=== PATIENT | female | born 1985 | race Caucasian/White ===

== ENCOUNTER 2017-01-14 16:13 | Outpatient (CLI) | payer BC ==
[2017-01-14] MEDS: Terbutaline 1 MG/ML SDV SUBCUT SCH ×2 (16:41→17:30)
== END 2017-01-14 18:51 | disposition home or self-care (01) ==
LOC: MW.OBCHECK 16:13 → MW.OB 16:15 → MW.OBCHECK 18:51
PROVIDERS: ATTEND Obstetrics & Gynecology
DX: O47.03 False labor before 37 completed weeks of gestation, third trimester (principal)
CPT/HCPCS: 59025; J3105; 96372

== ENCOUNTER 2017-02-19 04:54 | Inpatient (IN) | payer BC ==
[2017-02-19] MEDS ORDERED: Water For Irrigation,Sterile 1,000 ML Container IRR PRN (05:12)
[2017-02-19] MEDS ORDERED: Carboprost Tromethamine 250 MCG/1 ML Amp IM PRN (05:12)
[2017-02-19] MEDS ORDERED: Sodium Chloride 0.9% 10 ML Syringe FLUSH PRN (05:12)
[2017-02-19] MEDS ORDERED: Sodium Chloride 0.9% 2.5 ML Syringe FLUSH PRN (05:12)
[2017-02-19] MEDS ORDERED: Misoprostol 200 MCG Tab PO PRN (05:12)
[2017-02-19] MEDS ORDERED: Butorphanol 1 MG/ML SDV IVPUSH PRN (05:12)
[2017-02-19] MEDS ORDERED: Methylergonovine 0.2 MG/1 ML Amp IM PRN (05:12)
[2017-02-19] MEDS ORDERED: Lidocaine 1% 50 ML MDV INJECT PRN (05:12)
[2017-02-19] MEDS ORDERED: Terbutaline 1 MG/ML SDV SUBCUT PRN (05:14)
[2017-02-19] MEDS ORDERED: Oxytocin/Lactated Ringers 30 UNIT/500 ML BAG IV SCH (05:15)
[2017-02-19] MEDS ORDERED: Lactated Ringers 1,000 ML IV SCH (05:15)
[2017-02-19] MEDS ORDERED: oxyCODONE 5 MG Tab PO PRN (19:39)
[2017-02-19] MEDS ORDERED: Docusate Sodium 100 MG Cap PO PRN (19:39)
[2017-02-19] MEDS ORDERED: Benzocaine/Menthol 20%-0.5% Spray 78 GM Cannister TOP PRN (19:39)
[2017-02-19] MEDS ORDERED: Bisacodyl 10 MG Supp RECTAL PRN (19:39)
[2017-02-19] MEDS ORDERED: Lanolin 100% Cream 7 GM Tube TOP PRN (19:39)
[2017-02-19] MEDS ORDERED: Witch Hazel Medicated Pads 40/Jar TOP PRN (19:39)
[2017-02-19] MEDS: Acetaminophen 500 MG Tab PO PRN (21:45)
[2017-02-19] MEDS: Ibuprofen 800 MG Tab PO PRN (21:46)
--- NOTE | 2017-02-20 01:21 | OR ---
SURGEON: Felisha Camacho DATE OF PROCEDURE: 02/19/2017 DELIVERY SUMMARY BRIEF PREOPERATIVE HISTORY: This is a 31-year-old, G3, P2, who presented to Labor and Delivery for induction of labor for asymmetric IUGR less than the 5th percentile with head sparing. On admission, heart tracing was significant for a category 1 status and patient was having an occasional contraction. Secondary to intrauterine growth restriction, initially her cervix was ripened with Cook catheter balloon. On admission, the patient's cervix was 1 cm dilated, approximately 60% effaced, and -2 station. After the catheter was dislodged, the patient was approximately 5 cm dilated. With Cook catheter in, IV Pitocin was started. Once the catheter was out, the patient was at 18 milliunits per minute of Pitocin and amniotomy was performed for clear fluid. The patient eventually progressed to complete dilation and +1 station. The patient started maternal expulsive efforts. PREOPERATIVE DIAGNOSES: 1. Intrauterine at 39 weeks and 1 day. 2. GBS negative. 3. Induction of labor for asymmetric IUGR. POSTOPERATIVE DIAGNOSES: 1. Intrauterine at 39 weeks and 1 day. 2. Delivered status. 3. Bilateral labial abrasions. PROCEDURE PERFORMED: Spontaneous-assisted vaginal delivery. ANESTHESIA: None. ESTIMATED BLOOD LOSS: 100 mL. FINDINGS: Viable female in vertex presentation with score of 9 and 9 at 1 and 5 minutes respectively and weight of 2150g. Bilateral labia minora abrasions on the internal surface. Intact perineum. Normal intact placenta with 3-vessel cord. Of note, the placenta was small, but appropriate for 2150 g . SPECIMEN REMOVED: Placenta. CONDITION: Postoperatively, the patient and tolerated the procedure well. COMPLICATIONS: None known. DESCRIPTION OF PROCEDURE: This female, under no anesthesia, delivered a viable female infant, with score of 9 and 9 at 1 and 5 minutes respectively and weight of 2150 g. Delivery was via spontaneous assisted vaginal delivery with in vertex presentation. Upon delivery of infant vertex, the neck was checked and there was a no nuchal to be reduced and the anterior shoulder spontaneously delivered with fetus. The was bulb suctioned at delivery and placed directly on mom's abdomen since the baby was small. was very vigorous. After delivery of the , IV Pitocin was given as an uterotonic to prevent excessive maternal blood loss and to help expel the placenta. With signs of placental separation, a fundal massage was completed along with traction on the umbilical cord and a normal intact placenta with a three-vessel cord was delivered. After delivery of and placenta, the vagina, perineum, and rectum were explored and the patient had on inside of her labia minora just abrasions that were hemostatic and not in need of repair. The lower uterine segment and vagina was cleared of all clots and debris. The patient was cleansed. Pads were changed. The bed was returned to functioning status. The patient and tolerated the procedure well. Sponge, lap, needle, and instrument counts were correct. DONNA / KINZA /[id number] ANTONIO
[2017-02-20] MEDS: Ibuprofen 800 MG Tab PO PRN (08:53)
--- NOTE | 2017-02-20 12:07 | PCM.PNPP ---
- General Info Date of Service: 02/20/17 Functional Status: Reports: pain controlled, tolerating diet, ambulating, urinating - Review of Systems General: Reports: No Symptoms HEENT: Reports: no symptoms Pulmonary: Reports: no symptoms Cardiovascular: Reports: No Symptoms Gastrointestinal: Reports: No symptoms Genitourinary: Reports: no symptoms Musculoskeletal: Reports: no symptoms Skin: Reports: no symptoms Neurological: Reports: No Symptoms Psychiatric: Reports: no symptoms - General Info Date of Service: 02/20/17 - Patient Data Vital Signs - most recent: Last Vital Signs Temp 36.5 C 02/20/17 04:03 Pulse 51 L 02/20/17 04:03 Resp 15 02/20/17 04:03 BP 122/78 02/20/17 04:03 Pulse Ox 97 02/20/17 04:03 Weight - most recent: 70.307 kg Lab Results - last 24 hrs: Laboratory Results - last 24 hr 02/20/17 Range/Units 06:51 Hgb 13.0 (12.0-16.0) g/dL Hct 36.8 (36.0-46.0) % Med Orders - Current: Current Medications Acetaminophen (Tylenol Extra Strength) 500 mg PO Q4H PRN PRN Reason: Pain Last Admin: 02/19/17 21:45 Dose: 500 mg Benzocaine/Menthol (Dermoplast Pain Relief 20%-0.5% [place]) 78 gm TOP ASDIRECTED PRN PRN Reason: Perineal Comfort Measure Bisacodyl (Dulcolax) 10 mg RECTAL .ONCE PRN PRN Reason: Constipation Butorphanol Tartrate (Stadol) 1 mg IVPUSH Q1H PRN PRN Reason: Pain Last Admin: 02/19/17 17:42 Dose: 1 mg Carboprost Tromethamine (Hemabate Ds) 250 mcg IM ASDIRECTED PRN PRN Reason: Post Hemorrhage Docusate Sodium (Colace) 100 mg PO BID PRN PRN Reason: Constipation Emollient Ointment (Lansinoh Hpa) 0 gm TOP ASDIRECTED PRN PRN Reason: Sore Nipples Last Admin: 02/19/17 21:44 Dose: 1 applic Lactated Ringer's (Ringers, Lactated) 1,000 mls @ 150 mls/hr IV ASDIRECTED BANDAR Last Admin: 02/19/17 12:57 Dose: 150 mls/hr Oxytocin/Lactated Ringer's (Pitocin In Lr 30 Units/500 Ml) 30 unit in 500 mls @ 2 mls/hr IV TITRATE BANDAR; 2 MUNITS/MIN PRN Reason: Protocol Last Titration: 02/19/17 18:51 Dose: 999 munits/min, 999 mls/hr Ibuprofen (Motrin) 800 mg PO Q6H PRN PRN Reason: Pain Last Admin: 02/20/17 08:53 Dose: 800 mg Lidocaine HCl (Xylocaine 1%) 50 ml INJECT .ONCE PRN PRN Reason: Laceration repair Methylergonovine Maleate (Methergine) 0.2 mg IM ASDIRECTED PRN PRN Reason: Post Hemorrhage Misoprostol (Cytotec) 200 mcg PO .ONCE PRN PRN Reason: Post Hemorrhage Sodium Chloride (Saline Flush) 10 ml FLUSH ASDIRECTED PRN PRN Reason: Keep Vein Open Sodium Chloride (Saline Flush) 2.5 ml FLUSH ASDIRECTED PRN PRN Reason: Keep Vein Open Sterile Water (Sterile Water For Irrigation) 1,000 ml IRR ASDIRECTED PRN PRN Reason: delivery Last Admin: 02/19/17 21:43 Dose: 1,000 ml Terbutaline Sulfate (Brethine) 0.25 mg SUBCUT ASDIRECTED PRN PRN Reason: Tacysystole Witch Na (Tucks) 1 pad TOP ASDIRECTED PRN PRN Reason: comfort care Discontinued Medications Oxycodone HCl (Oxycodone) 5 mg PO Q2H PRN PRN Reason: Pain - Interaction Infant Disposition, : in Room with Family Interaction: Holding Infant Feeding: Attempted ; Nursed Fair/Poor Support Person: - Recovery Exam Fundal Tone: Firm Fundal Placement: Midline Lochia Amount: Small Lochia Color: Rubra/Red - Exam General: alert, oriented Neck: supple Lungs: Clear to auscultation, Normal respiratory effort Cardiovascular: Regular Rate, Regular Rhythm Abdomen: bowel sounds present, soft, no tenderness Extremities: no calf tenderness Skin: warm, dry, intact Neurological: no new focal deficit Psy/Mental Status: alert, normal affect, normal mood - Problem List & Annotations (1) Vaginal delivery SNOMED Code(s): 858934812 Code(s): O80 - ENCOUNTER FOR FULL-TERM UNCOMPLICATED DELIVERY Status: Acute Current Visit: Yes - Problem List Review Problem List Initiated/Reviewed/Updated: Yes - My Orders Last 24 Hours: My Active Orders 02/19/17 19:39 Patient Status [ADT] Routine May Shower [RC] ASDIRECTED Up ad [place]zana [RC] ASDIRECTED Vital Signs [RC] PER UNIT ROUTINE Acetaminophen [Tylenol Extra Strength] 500 mg PO Q4H PRN Benzocaine/Menthol [Dermoplast Pain Relief 20%-0.5% [place]] 78 gm TOP ASDIRECTED PRN Bisacodyl [Dulcolax] 10 mg RECTAL .ONCE PRN Docusate Sodium [Colace] 100 mg PO BID PRN Ibuprofen [Motrin] 800 mg PO Q6H PRN Lanolin [Lansinoh HPA] See Dose Instructions TOP ASDIRECTED PRN Witch Na [Tucks] 1 pad TOP ASDIRECTED PRN Assess Lochia [WOMSER] Per Unit Routine Assess Uterine Involution [WOMSER] Per Unit Routine Peripheral IV Discontinue [OM.PC] Routine 02/19/17 19:40 Ice Therapy [OM.PC] Per Unit Routine Perineal Care [OM.PC] Per Unit Routine Sitz Bath [OM.PC] Per Unit Routine 02/19/17 Dinner Regular Diet [DIET] - Assessment Assessment:: PPD#1 S/p SAVD, IOL for IUGR Doing well Breast feeding well Anticipate discharge home tomorrow
[2017-02-20] MEDS: Acetaminophen 500 MG Tab PO PRN (15:24)
[2017-02-21] MEDS: Ibuprofen 800 MG Tab PO PRN (00:08)
[2017-02-21 09:09] VITALS: BP 119/83
--- NOTE | 2017-02-21 12:29 | PCM.PNPP ---
- General Info Date of Service: 02/21/17 Functional Status: Reports: pain controlled, tolerating diet, ambulating, urinating - Review of Systems General: Reports: No Symptoms HEENT: Reports: no symptoms Pulmonary: Reports: no symptoms Cardiovascular: Reports: No Symptoms Gastrointestinal: Reports: No symptoms Genitourinary: Reports: no symptoms Musculoskeletal: Reports: no symptoms Skin: Reports: no symptoms Neurological: Reports: No Symptoms Psychiatric: Reports: no symptoms - General Info Date of Service: 02/21/17 - Patient Data Vital Signs - most recent: Last Vital Signs Temp 36.3 C 02/21/17 08:15 Pulse 67 02/21/17 08:15 Resp 16 02/21/17 08:15 BP 119/83 02/21/17 08:15 Pulse Ox 97 02/21/17 08:15 Weight - most recent: 70.307 kg Med Orders - Current: Current Medications Acetaminophen (Tylenol Extra Strength) 500 mg PO Q4H PRN PRN Reason: Pain Last Admin: 02/20/17 15:24 Dose: 500 mg Benzocaine/Menthol (Dermoplast Pain Relief 20%-0.5% [place]) 78 gm TOP ASDIRECTED PRN PRN Reason: Perineal Comfort Measure Bisacodyl (Dulcolax) 10 mg RECTAL .ONCE PRN PRN Reason: Constipation Butorphanol Tartrate (Stadol) 1 mg IVPUSH Q1H PRN PRN Reason: Pain Last Admin: 02/19/17 17:42 Dose: 1 mg Carboprost Tromethamine (Hemabate Ds) 250 mcg IM ASDIRECTED PRN PRN Reason: Post Hemorrhage Docusate Sodium (Colace) 100 mg PO BID PRN PRN Reason: Constipation Emollient Ointment (Lansinoh Hpa) 0 gm TOP ASDIRECTED PRN PRN Reason: Sore Nipples Last Admin: 02/19/17 21:44 Dose: 1 applic Lactated Ringer's (Ringers, Lactated) 1,000 mls @ 150 mls/hr IV ASDIRECTED BANDAR Last Admin: 02/19/17 12:57 Dose: 150 mls/hr Oxytocin/Lactated Ringer's (Pitocin In Lr 30 Units/500 Ml) 30 unit in 500 mls @ 2 mls/hr IV TITRATE BANDAR; 2 MUNITS/MIN PRN Reason: Protocol Last Titration: 02/19/17 18:51 Dose: 999 munits/min, 999 mls/hr Ibuprofen (Motrin) 800 mg PO Q6H PRN PRN Reason: Pain Last Admin: 02/21/17 00:08 Dose: 800 mg Lidocaine HCl (Xylocaine 1%) 50 ml INJECT .ONCE PRN PRN Reason: Laceration repair Methylergonovine Maleate (Methergine) 0.2 mg IM ASDIRECTED PRN PRN Reason: Post Hemorrhage Misoprostol (Cytotec) 200 mcg PO .ONCE PRN PRN Reason: Post Hemorrhage Sodium Chloride (Saline Flush) 10 ml FLUSH ASDIRECTED PRN PRN Reason: Keep Vein Open Sodium Chloride (Saline Flush) 2.5 ml FLUSH ASDIRECTED PRN PRN Reason: Keep Vein Open Sterile Water (Sterile Water For Irrigation) 1,000 ml IRR ASDIRECTED PRN PRN Reason: delivery Last Admin: 02/19/17 21:43 Dose: 1,000 ml Terbutaline Sulfate (Brethine) 0.25 mg SUBCUT ASDIRECTED PRN PRN Reason: Tacysystole Witch Na (Tucks) 1 pad TOP ASDIRECTED PRN PRN Reason: comfort care Discontinued Medications Oxycodone HCl (Oxycodone) 5 mg PO Q2H PRN PRN Reason: Pain - Infant Interaction Infant Disposition, : [place] in Room with Family Infant Interaction: Holding Feeding: Breastfed Infant; Nursed Well Support Person: - Recovery Exam Fundal Tone: Firm Fundal Level: 2 Fingerbreadths Below Umbilicus Fundal Placement: Midline Lochia Amount: Scant Lochia Color: Rubra/Red Perineum Description: Intact, Minimal Bruising/Swelling Episiotomy/Laceration: None Bladder Status: Voiding Urinary Elimination: Voided - Exam General: alert, oriented Neck: supple Lungs: Clear to auscultation, Normal respiratory effort Cardiovascular: Regular Rate, Regular Rhythm Abdomen: bowel sounds present, soft, no tenderness Extremities: no calf tenderness Skin: warm, dry, intact Neurological: no new focal deficit Psy/Mental Status: alert, normal affect, normal mood - Problem List & Annotations (1) Vaginal delivery SNOMED Code(s): 780936903 Code(s): O80 - ENCOUNTER FOR FULL-TERM UNCOMPLICATED DELIVERY Status: Acute Current Visit: Yes - Problem List Review Problem List Initiated/Reviewed/Updated: Yes - My Orders Last 24 Hours: My Active Orders 02/21/17 12:26 Ready for Discharge [RC] PER UNIT ROUTINE - Assessment Assessment:: PPD#2 S/p SAVD, IOL for IUGR Doing well Breast feeding well Discharge home today - Plan Plan:: Discharge home today with follow up in 6wks Pelvic rest for 6wks Bleeding precautions Infection precautions given Thrombotic precautions blues/depression precautions
== END 2017-02-21 13:20 | disposition home or self-care (01) | DRG 560 ==
LOC: MW.OBCHECK 04:54 → MW.OB 04:56 → MW.OBCHECK 05:12 → OBSVTOIN 18:50 → MW.OB 22:40
PROVIDERS: ADMIT Obstetrics & Gynecology; ATTEND Obstetrics & Gynecology
PROC: 10E0XZZ Delivery of Products of Conception, External Approach (ICD-10-PCS; principal; 2017-02-19)
PROC: 3E033VJ Introduction of Other Hormone into Peripheral Vein, Percutaneous Approach (ICD-10-PCS; 2017-02-19)
PROC: 0U7C7ZZ Dilation of Cervix, Via Natural or Artificial Opening (ICD-10-PCS; 2017-02-19)
DX: O36.5930 Maternal care for other known or suspected poor fetal growth, third trimester, not applicable or unspecified (principal); O71.82 Other specified trauma to perineum and vulva; Z3A.39 39 weeks gestation of pregnancy; Z37.0 Single live birth
CPT/HCPCS: 36415; 59025; 59200; 85014; 85018; 85027; 86850; 86900; 86901; 88307; A9270-GY; J0595; J7120

== ENCOUNTER 2020-11-05 13:47 | Observation (INO) | payer BC ==
[2020-11-05] MEDS ORDERED: Lactated Ringers 1,000 ML IV SCH (14:00)
[2020-11-05] MEDS ORDERED: Acetaminophen 500 MG Tab PO PRN (14:10)
[2020-11-05] MEDS ORDERED: cefTRIAXone 1 GM in Premix Bag 1 BAG IV SCH (14:15)
[2020-11-05] MEDS ORDERED: Sodium Chloride 0.9% 50 ML IV SCH (14:30)
== END 2020-11-05 20:05 | disposition home or self-care (01) ==
LOC: MW.OB 13:47
PROVIDERS: ADMIT Obstetrics & Gynecology; ATTEND Obstetrics & Gynecology
DX: O23.03 Infections of kidney in pregnancy, third trimester (principal); Z3A.31 31 weeks gestation of pregnancy; Z79.899 Other long term (current) drug therapy; Z88.0 Allergy status to penicillin; Z88.5 Allergy status to narcotic agent; Z20.822 Contact with and (suspected) exposure to COVID-19
CPT/HCPCS: 36415; 59025; 85007; 85027; 87635; 96365; A9270; G0378; J0696; J7120; U0002

== ENCOUNTER 2020-12-27 01:43 | Inpatient (IN) | payer BC ==
[2020-12-27] MEDS: Lactated Ringers 1,000 ML IV SCH ×3 (06:10→09:25)
[2020-12-27] MEDS ORDERED: Misoprostol 200 MCG Tab PO PRN (06:15)
[2020-12-27] MEDS ORDERED: Tranexamic Acid 1,000 MG in Sodium Chloride 0.9% 100 ML IV PRN (06:15)
[2020-12-27] MEDS ORDERED: Butorphanol 1 MG/ML SDV IVPUSH PRN (06:15)
[2020-12-27] MEDS ORDERED: Sodium Chloride 0.9% 2.5 ML Syringe FLUSH PRN (06:15)
[2020-12-27] MEDS ORDERED: Water For Irrigation,Sterile 1,000 ML Container IRR PRN (06:15)
[2020-12-27] MEDS ORDERED: Sodium Chloride 0.9% 10 ML Syringe FLUSH PRN (06:15)
[2020-12-27] MEDS ORDERED: Carboprost Tromethamine 250 MCG/1 ML Amp IM PRN (06:15)
[2020-12-27] MEDS ORDERED: Lidocaine 1% 50 ML MDV INJECT PRN (06:15)
[2020-12-27] MEDS ORDERED: Oxytocin/0.9 % Sodium Chloride 30 UNIT/500 ML BAG IV SCH (06:15)
[2020-12-27] MEDS ORDERED: Nalbuphine 10 MG/1 ML Vial IVPUSH PRN (06:15)
[2020-12-27] MEDS ORDERED: Methylergonovine 0.2 MG/1 ML Amp IM PRN (06:15)
[2020-12-27] MEDS ORDERED: Sodium Chloride 0.9% 10 ML SDV IV PRN (06:15)
[2020-12-27] MEDS ORDERED: fentaNYL 100 MCG/2 ML SDV ONE (06:58)
[2020-12-27] MEDS ORDERED: Ropivacaine HCl/PF 100 ML ONE (06:58)
--- NOTE | 2020-12-27 07:19 | PCM.PREANE ---
Preanesthetic Assessment - Anesthesia/Transfusion/Family Hx Anesthesia History: Prior Anesthesia Without Reaction Family History of Anesthesia Reaction: No Transfusion History: No Prior Transfusion(s) - Physical Assessment NPO Status Date: 12/27/20 NPO Status Time: 00:05 Height: 1.6 m Weight: 73.663 kg ASA Class: 2 - Lab Values: Laboratory Last Values WBC 8.13 K/uL (4.0-11.0) 12/27/20 06:10 RBC 4.65 M/uL (4.30-5.90) 12/27/20 06:10 Hgb 13.5 g/dL (12.0-16.0) 12/27/20 06:10 Hct 39.8 % (36.0-46.0) 12/27/20 06:10 MCV 85.6 fL (80.0-98.0) 12/27/20 06:10 MCH 29.0 pg (27.0-32.0) 12/27/20 06:10 MCHC 33.9 g/dL (31.0-37.0) 12/27/20 06:10 RDW Std Deviation 42.1 fl (28.0-62.0) 12/27/20 06:10 RDW Coeff of Bong 14 % (11.0-15.0) 12/27/20 06:10 Plt Count 162 K/uL (150-400) 12/27/20 06:10 MPV 10.10 fL (7.40-12.00) 12/27/20 06:10 Nucleated RBC % 0.0 /100WBC 12/27/20 06:10 Nucleated RBCs # 0 K/uL 12/27/20 06:10 SARS-CoV-2 RNA (TANISHA) NEGATIVE (NEGATIVE) 12/27/20 06:00 - Allergies Allergies/Adverse Reactions: Allergies Allergy/AdvReac Type Severity Reaction Status Date / Time hydrocodone Allergy Nausea Verified 02/19/17 05:03 Penicillins Allergy Other Verified 02/19/17 05:03 - Acknowledgements Anesthesia Type Planned: Epidural Pt an Appropriate Candidate for the Planned Anesthesia: Yes Alternatives and Risks of Anesthesia Discussed w Pt/Guardian: Yes Pt/Guardian Understands and Agrees with Anesthesia Plan: Yes PreAnesthesia Questionnaire - Past Health History Medical/Surgical History: Denies 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: - Infectious Disease History Infectious Disease History: Reports: Chicken Pox - Past Surgical History HEENT Surgical History: Reports: Other (See Below) Other HEENT Surgeries/Procedures: wisdom teeth extraction Female Surgical History: Reports: Other (See Below) Other Female Surgeries/Procedures: breast augmentation - SUBSTANCE USE Tobacco Use Status *Q: Never Tobacco User Tobacco Use Within Last Twelve Months: No Second Hand Smoke Exposure: No Recreational Drug Use History: No - HOME MEDS Home Medications: Home Meds Vit37/Iron/Folic Acid [[place]] 1 tab PO DAILY 12/27/20 [History] - CURRENT (IN HOUSE) MEDS Current Meds: Current Medications Butorphanol Tartrate (Stadol) 1 mg IVPUSH Q1H PRN PRN Reason: Pain Carboprost Tromethamine (Hemabate Ds) 250 mcg IM ASDIRECTED PRN PRN Reason: Post Hemorrhage Lactated Ringer's (Ringers, Lactated) 1,000 mls @ 150 mls/hr IV ASDIRECTED BANDAR Last Admin: 12/27/20 06:10 Dose: 999 mls/hr Documented by: Oxytocin/Sodium Chloride (Oxytocin 30 Unit/500 Ml-Ns) 30 unit in 500 mls @ 500 mls/hr IV TITRATE [facility] Tranexamic Acid 1,000 mg/ (Sodium Chloride) 110 mls @ 660 mls/hr IV ONETIME PRN PRN Reason: Bleeding Lidocaine HCl (Xylocaine 1%) 50 ml INJECT ONETIME PRN PRN Reason: Laceration repair Methylergonovine Maleate (Methergine) 0.2 mg IM ASDIRECTED PRN PRN Reason: Post Hemorrhage Misoprostol (Cytotec) 200 mcg PO ONETIME PRN PRN Reason: Post Hemorrhage Nalbuphine HCl (Nubain) 10 mg IVPUSH Q1H PRN PRN Reason: Pain (severe 7-10) Sodium Chloride (Saline Flush) 10 ml FLUSH ASDIRECTED PRN PRN Reason: Keep Vein Open Sodium Chloride (Saline Flush) 2.5 ml FLUSH ASDIRECTED PRN PRN Reason: Keep Vein Open Sodium Chloride (Normal Saline) 10 ml IV ASDIRECTED PRN PRN Reason: IV Use Sterile Water (Sterile Water For Irrigation) 1,000 ml IRR ASDIRECTED PRN PRN Reason: delivery Discontinued Medications Fentanyl (Sublimaze) Confirm Administered Dose 100 mcg .ROUTE .STK-MED ONE Stop: 12/27/20 06:59 Ropivacaine (Naropin 0.2%) Confirm Administered Dose 100 mls @ as directed .ROUTE .STK-MED ONE Stop: 12/27/20 06:59
--- NOTE | 2020-12-27 07:22 | PCM.PRNOTE ---
- Free Text/Narrative Note: Anes Note Patient requests epidural. Sitting position, Level L3-L4 midline approach. Sterile technique. Chloraprep scrub to lumbar area. Sterile fenestrated drape applied. Epidural space easily achieved single attempt with ease using DHARMESH technique. DHARMESH at 3 cm. Cath threaded 5 cm with ease. Sterile clear adhesive dressing applied. Test 0703 3 cc 1.5% lido with epi negative. 0705 Load 10 cc 0.2% ropivicaine with 1 mcg cc fentayl in slow divided doses. 0710 Pumps started with 90 cc same solution. Rate is 8 cc hr with 6 cc q 20 min prn bolus. Abdoul well. 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
--- NOTE | 2020-12-27 10:35 | PCM.DEL ---
<Kellie Vazquez - Last Filed: 12/27/20 10:30> L & D Note - General Info Date of Service: 12/27/20 Mother's Due Date: 01[birth year]03[birth year] - Delivery Note Labor: Spontaneous, Augmented by ARM Delivery Outcome: Livebirth Infant Delivery Method: Spontaneous Vaginal Delivery-Single Presentation: Vertex Nuchal Cord: Reduced Prep: Other Anesthesia Type: Epidural Amniotic Fluid Description: Clear Episiotomy Type: None Laceration: None Placenta: Intact, Spontaneous Cord: 3 Vessels Estimated Blood Loss: 100 Resuscitation Needed: Yes : Suctioned, Bulb Syringe, Stimulated Score 1 min: 9 Score 5 min: 9 - General Info Date of Service: 12/27/20 Functional Status: Reports: Pain Controlled - Review of Systems General: Reports: No Symptoms HEENT: Reports: No Symptoms Pulmonary: Reports: No Symptoms Cardiovascular: Reports: No Symptoms Gastrointestinal: Reports: No Symptoms Genitourinary: Reports: No Symptoms Musculoskeletal: Reports: No Symptoms Skin: Reports: No Symptoms Neurological: Reports: No Symptoms Psychiatric: Reports: No Symptoms - Patient Data Weight - Most Recent: 73.663 kg I&O - Last 24 Hours: Intake & Output 12/26/20 12/27/20 12/27/20 22:59 06:59 14:59 Intake Total 975 Balance 975 Lab Results Last 24 Hours: Laboratory Results - last 24 hr 12/27/20 12/27/20 12/27/20 Range/Units 06:00 06:10 06:10 WBC 8.13 (4.0-11.0) K/uL RBC 4.65 (4.30-5.90) M/uL Hgb 13.5 (12.0-16.0) g/dL Hct 39.8 (36.0-46.0) % MCV 85.6 (80.0-98.0) fL MCH 29.0 (27.0-32.0) pg MCHC 33.9 (31.0-37.0) g/dL RDW Std Deviation 42.1 (28.0-62.0) fl RDW Coeff of Bong 14 (11.0-15.0) % Plt Count 162 (150-400) K/uL MPV 10.10 (7.40-12.00) fL Nucleated RBC % 0.0 /100WBC Nucleated RBCs # 0 K/uL SARS-CoV-2 RNA (TANISHA) NEGATIVE (NEGATIVE) Blood Type A NEGATIVE Antibody Screen NEGATIVE Med Orders - Current: Current Medications Butorphanol Tartrate (Stadol) 1 mg IVPUSH Q1H PRN PRN Reason: Pain Carboprost Tromethamine (Hemabate Ds) 250 mcg IM ASDIRECTED PRN PRN Reason: Post Hemorrhage Lactated Ringer's (Ringers, Lactated) 1,000 mls @ 150 mls/hr IV ASDIRECTED [facility] Last Admin: 12/27/20 09:25 Dose: 150 mls/hr Documented by: Oxytocin/Sodium Chloride (Oxytocin 30 Unit/500 Ml-Ns) 30 unit in 500 mls @ 500 mls/hr IV TITRATE [facility] Last Infusion: 12/27/20 10:19 Dose: 999 mls/hr Documented by: Tranexamic Acid 1,000 mg/ (Sodium Chloride) 110 mls @ 660 mls/hr IV ONETIME PRN PRN Reason: Bleeding Lidocaine HCl (Xylocaine 1%) 50 ml INJECT ONETIME PRN PRN Reason: Laceration repair Methylergonovine Maleate (Methergine) 0.2 mg IM ASDIRECTED PRN PRN Reason: Post Hemorrhage Misoprostol (Cytotec) 200 mcg PO ONETIME PRN PRN Reason: Post Hemorrhage Nalbuphine HCl (Nubain) 10 mg IVPUSH Q1H PRN PRN Reason: Pain (severe 7-10) Sodium Chloride (Saline Flush) 10 ml FLUSH ASDIRECTED PRN PRN Reason: Keep Vein Open Sodium Chloride (Saline Flush) 2.5 ml FLUSH ASDIRECTED PRN PRN Reason: Keep Vein Open Sodium Chloride (Normal Saline) 10 ml IV ASDIRECTED PRN PRN Reason: IV Use Sterile Water (Sterile Water For Irrigation) 1,000 ml IRR ASDIRECTED PRN PRN Reason: delivery Discontinued Medications Fentanyl (Sublimaze) Confirm Administered Dose 100 mcg .ROUTE .STK-MED ONE Stop: 12/27/20 06:59 Ropivacaine (Naropin 0.2%) Confirm Administered Dose 100 mls @ as directed .ROUTE .STK-MED ONE Stop: 12/27/20 06:59 - Exam General: Alert, Oriented HEENT: Pupils Equal, Pupils Reactive, EOMI, Mucous Membr. Moist/[place] Neck: Supple Lungs: Clear to Auscultation, Normal Respiratory Effort Cardiovascular: Regular Rate, Regular Rhythm GI/Abdominal Exam: Soft, No Organomegaly, No Distention, No Mass (Female) Exam: Vaginal Bleeding Back Exam: Normal Inspection, Full Range of Motion Extremities: Normal Inspection, Normal Range of Motion, Non-Tender, No Pedal Edema, Normal Capillary Refill Skin: Warm, Dry, Intact Wound/Incisions: Healing Well Neurological: No New Focal Deficit Psy/Mental Status: Alert, Normal Affect, Normal Mood - Problem List & Annotations (1) Vaginal delivery SNOMED Code(s): 799695462 Code(s): O80 - ENCOUNTER FOR FULL-TERM UNCOMPLICATED DELIVERY Status: Acute Current Visit: Yes Onset Date: ~12/27/20 - Problem List Review Problem List Initiated/Reviewed/Updated: Yes - Assessment Assessment:: 35 year old at 39 weeks presented in spontaneous labor, delivered viable female apgars 9 & 9. No lacerations. Uterus firm. Mom and baby stable. - Plan Plan:: 1. Routine pp cares 2. Rh negative - will get dose of rhogam 3. Rubella non-immune - rubella vaccine post- <María Mccauley - Last Filed: 12/27/20 12:13> L & D Note - Delivery Note Delivery Comments (Free Text/Narrative):: live female delivered at 1017am, 9/9 weight pending - Patient Data I&O - Last 24 Hours: Intake & Output 12/26/20 12/27/20 12/27/20 22:59 06:59 14:59 Intake Total 975 Balance 975 Lab Results Last 24 Hours: Laboratory Results - last 24 hr 12/27/20 12/27/20 12/27/20 Range/Units 06:00 06:10 06:10 WBC 8.13 (4.0-11.0) K/uL RBC 4.65 (4.30-5.90) M/uL Hgb 13.5 (12.0-16.0) g/dL Hct 39.8 (36.0-46.0) % MCV 85.6 (80.0-98.0) fL MCH 29.0 (27.0-32.0) pg MCHC 33.9 (31.0-37.0) g/dL RDW Std Deviation 42.1 (28.0-62.0) fl RDW Coeff of Bong 14 (11.0-15.0) % Plt Count 162 (150-400) K/uL MPV 10.10 (7.40-12.00) fL Nucleated RBC % 0.0 /100WBC Nucleated RBCs # 0 K/uL SARS-CoV-2 RNA (TANISHA) NEGATIVE (NEGATIVE) Blood Type A NEGATIVE Antibody Screen NEGATIVE Med Orders - Current: Current Medications Acetaminophen (Tylenol Extra Strength) 500 mg PO Q4H PRN PRN Reason: Pain Acetaminophen (Tylenol Extra Strength) 1,000 mg PO Q4H PRN PRN Reason: Pain Benzocaine/Menthol (Dermoplast Pain Relief 20%-0.5% [place]) 78 gm TOP ASDIRECTED PRN PRN Reason: Perineal Comfort Measure Bisacodyl (Dulcolax) 10 mg RECTAL ONETIME PRN PRN Reason: Constipation Butorphanol Tartrate (Stadol) 1 mg IVPUSH Q1H PRN PRN Reason: Pain Carboprost Tromethamine (Hemabate Ds) 250 mcg IM ASDIRECTED PRN PRN Reason: Post Hemorrhage Docusate Sodium (Colace) 100 mg PO BID PRN PRN Reason: Constipation Emollient Ointment (Lansinoh Hpa) 0 gm TOP ASDIRECTED PRN PRN Reason: Sore Nipples Lactated Ringer's (Ringers, Lactated) 1,000 mls @ 150 mls/hr IV ASDIRECTED [facility] Last Admin: 12/27/20 09:25 Dose: 150 mls/hr Documented by: Oxytocin/Sodium Chloride (Oxytocin 30 Unit/500 Ml-Ns) 30 unit in 500 mls @ 500 mls/hr IV TITRATE [facility] Last Infusion: 12/27/20 10:19 Dose: 999 mls/hr Documented by: Tranexamic Acid 1,000 mg/ (Sodium Chloride) 110 mls @ 660 mls/hr IV ONETIME PRN PRN Reason: Bleeding Ibuprofen (Motrin) 400 mg PO Q4H PRN PRN Reason: Pain Ibuprofen (Motrin) 800 mg PO Q6H PRN PRN Reason: Pain Lidocaine HCl (Xylocaine 1%) 50 ml INJECT ONETIME PRN PRN Reason: Laceration repair Methylergonovine Maleate (Methergine) 0.2 mg IM ASDIRECTED PRN PRN Reason: Post Hemorrhage Misoprostol (Cytotec) 200 mcg PO ONETIME PRN PRN Reason: Post Hemorrhage Nalbuphine HCl (Nubain) 10 mg IVPUSH Q1H PRN PRN Reason: Pain (severe 7-10) Oxycodone HCl (Oxycodone) 5 mg PO Q2H PRN PRN Reason: Pain Sodium Chloride (Saline Flush) 10 ml FLUSH ASDIRECTED PRN PRN Reason: Keep Vein Open Sodium Chloride (Saline Flush) 2.5 ml FLUSH ASDIRECTED PRN PRN Reason: Keep Vein Open Sodium Chloride (Normal Saline) 10 ml IV ASDIRECTED PRN PRN Reason: IV Use Sterile Water (Sterile Water For Irrigation) 1,000 ml IRR ASDIRECTED PRN PRN Reason: delivery Witch Na (Tucks) 1 pad TOP ASDIRECTED PRN PRN Reason: comfort care Discontinued Medications Fentanyl (Sublimaze) Confirm Administered Dose 100 mcg .ROUTE .STK-MED ONE Stop: 12/27/20 06:59 Ropivacaine (Naropin 0.2%) Confirm Administered Dose 100 mls @ as directed .ROUTE .STK-MED ONE Stop: 12/27/20 06:59 - Problem List & Annotations (1) Vaginal delivery SNOMED Code(s): 859243394 Code(s): O80 - ENCOUNTER FOR FULL-TERM UNCOMPLICATED DELIVERY Status: Acute Current Visit: Yes Onset Date: ~12/27/20 - My Orders Last 24 Hours: My Active Orders 12/27/20 10:47 Acetaminophen [Tylenol Extra Strength] 1,000 mg PO Q4H PRN Acetaminophen [Tylenol Extra Strength] 500 mg PO Q4H PRN Benzocaine/Menthol [Dermoplast Pain Relief 20%-0.5% [place]] 78 gm TOP ASDIRECTED PRN Docusate Sodium [Colace] 100 mg PO BID PRN Ibuprofen [Motrin] 400 mg PO Q4H PRN Ibuprofen [Motrin] 800 mg PO Q6H PRN Lanolin [Lansinoh HPA] See Dose Instructions TOP ASDIRECTED PRN bisacodyL [Dulcolax] 10 mg RECTAL ONETIME PRN oxyCODONE 5 mg PO Q2H PRN sukhi Hadley [Jose De Jesusckcaroline] 1 pad TOP ASDIRECTED PRN 12/27/20 10:48 Assess Uterine Involution [WOMSER] Per Unit Routine Peripheral IV Discontinue [OM.PC] Routine 12/28/20 05:11 HEMOGLOBIN/HEMATOCRIT,HH [HEME] Timed
[2020-12-27] MEDS ORDERED: Benzocaine/Menthol 20%-0.5% Spray 78 GM Cannister TOP PRN (10:47)
[2020-12-27] MEDS ORDERED: oxyCODONE 5 MG Tab PO PRN (10:47)
[2020-12-27] MEDS ORDERED: Ibuprofen 400 MG Tab PO PRN (10:47)
[2020-12-27] MEDS ORDERED: Lanolin 100% Cream 7 GM Tube TOP PRN (10:47)
[2020-12-27] MEDS ORDERED: Bisacodyl 10 MG Supp RECTAL PRN (10:47)
[2020-12-27] MEDS ORDERED: Docusate Sodium 100 MG Cap PO PRN (10:47)
[2020-12-27] MEDS ORDERED: Acetaminophen 500 MG Tab PO PRN ×2 (10:47)
[2020-12-27] MEDS ORDERED: Ibuprofen 800 MG Tab PO PRN (10:47)
[2020-12-27] MEDS ORDERED: Witch Hazel Medicated Pads 40/Jar TOP PRN (10:47)
--- NOTE | 2020-12-27 21:19 | OR ---
SURGEON: JHOANA GILL DATE OF PROCEDURE: 12/27/2020 PREOPERATIVE DIAGNOSIS: A 35-year-old, G4, P 3-0-0-3, at 39 weeks 0 days, admitted in early labor. POSTOPERATIVE DIAGNOSIS: A 35-year-old, G4, P 3-0-0-3, at 39 weeks 0 days, admitted in early labor. PROCEDURE: Normal spontaneous vaginal delivery. ESTIMATED BLOOD LOSS: 100. IV FLUID: Pitocin running. NOTES AND FINDINGS: A live female delivered at 10:17 a.m. score of 9 and 9. Weight is 2900 g. BRIEF HISTORY ABOUT THE PATIENT: She is a 35-year-old, G4, P 3-0-0-3, at 39 weeks 0 days, who came in complaining of contractions. She was a low-risk patient. She was Rh negative. She received RhoGAM in the . She is also rubella equivocal, and she should receive MMR . The patient came in complaining of contractions. She was noted to be about 5 cm dilated. AROM was done. She was requiring epidural, which she received. The patient had a normal labor course, and she became fully dilated. DESCRIPTION OF PROCEDURE: With the patient being fully dilated, she was encouraged to push. With good pushing effort, she delivered the head in MICHAEL position followed by the anterior and posterior shoulder. There was a cord wrapped around the neck and the body, which was reduced after delivery of the body. Infant was placed on maternal abdomen. Delayed cord clamping was observed. Arterial blood gas was obtained. Placenta was delivered via controlled cord traction and the perineum was inspected, noted to be intact. All instrument and pad counts were correct x2. NGA / KINZA /[id number] ANTONIO
[2020-12-28 04:55] VITALS: BP 118/67
--- NOTE | 2020-12-28 05:32 | PCM.PNPP ---
- General Info Date of Service: 12/28/20 Admission Dx/Problem (Free Text): Subjective Update: Resting comfortably in bed during rounds. Reports pain well controlled. Ambulating and voiding without difficulty. Tolerating regular diet. Lochia decreasing. baby. - General Info Date of Service: 12/28/20 - Patient Data Vital Signs - Most Recent: Last Vital Signs Temp 97.6 F 12/28/20 04:00 Pulse 73 12/28/20 04:00 Resp 16 12/28/20 04:00 BP 118/67 12/28/20 04:00 Pulse Ox 98 12/28/20 04:00 Weight - Most Recent: 162 lb 6.4 oz I&O - Last 24 Hours: Intake & Output 12/27/20 12/27/20 12/28/20 14:59 22:59 06:59 Intake Total 975 Balance 975 Lab Results - Last 24 Hours: Laboratory Results - last 24 hr 12/27/20 12/27/20 12/27/20 Range/Units 06:00 06:10 06:10 WBC 8.13 (4.0-11.0) K/uL RBC 4.65 (4.30-5.90) M/uL Hgb 13.5 (12.0-16.0) g/dL Hct 39.8 (36.0-46.0) % MCV 85.6 (80.0-98.0) fL MCH 29.0 (27.0-32.0) pg MCHC 33.9 (31.0-37.0) g/dL RDW Std Deviation 42.1 (28.0-62.0) fl RDW Coeff of Bong 14 (11.0-15.0) % Plt Count 162 (150-400) K/uL MPV 10.10 (7.40-12.00) fL Nucleated RBC % 0.0 /100WBC Nucleated RBCs # 0 K/uL SARS-CoV-2 RNA (TANISHA) NEGATIVE (NEGATIVE) Blood Type A NEGATIVE Antibody Screen NEGATIVE Med Orders - Current: Current Medications Acetaminophen (Tylenol Extra Strength) 500 mg PO Q4H PRN PRN Reason: Pain Acetaminophen (Tylenol Extra Strength) 1,000 mg PO Q4H PRN PRN Reason: Pain Benzocaine/Menthol (Dermoplast Pain Relief 20%-0.5% [place]) 78 gm TOP ASDIRECTED PRN PRN Reason: Perineal Comfort Measure Bisacodyl (Dulcolax) 10 mg RECTAL ONETIME PRN PRN Reason: Constipation Butorphanol Tartrate (Stadol) 1 mg IVPUSH Q1H PRN PRN Reason: Pain Carboprost Tromethamine (Hemabate Ds) 250 mcg IM ASDIRECTED PRN PRN Reason: Post Hemorrhage Docusate Sodium (Colace) 100 mg PO BID PRN PRN Reason: Constipation Emollient Ointment (Lansinoh Hpa) 0 gm TOP ASDIRECTED PRN PRN Reason: Sore Nipples Last Admin: 12/27/20 20:07 Dose: 1 tube Documented by: Lactated Ringer's (Ringers, Lactated) 1,000 mls @ 150 mls/hr IV ASDIRECTED REPLACED BY [facility] Last Admin: 12/27/20 09:25 Dose: 150 mls/hr Documented by: Oxytocin/Sodium Chloride (Oxytocin 30 Unit/500 Ml-Ns) 30 unit in 500 mls @ 500 mls/hr IV TITRATE REPLACED BY [facility] Last Infusion: 12/27/20 10:19 Dose: 999 mls/hr Documented by: Tranexamic Acid 1,000 mg/ (Sodium Chloride) 110 mls @ 660 mls/hr IV ONETIME PRN PRN Reason: Bleeding Ibuprofen (Motrin) 400 mg PO Q4H PRN PRN Reason: Pain Ibuprofen (Motrin) 800 mg PO Q6H PRN PRN Reason: Pain Lidocaine HCl (Xylocaine 1%) 50 ml INJECT ONETIME PRN PRN Reason: Laceration repair Methylergonovine Maleate (Methergine) 0.2 mg IM ASDIRECTED PRN PRN Reason: Post Hemorrhage Misoprostol (Cytotec) 200 mcg PO ONETIME PRN PRN Reason: Post Hemorrhage Nalbuphine HCl (Nubain) 10 mg IVPUSH Q1H PRN PRN Reason: Pain (severe 7-10) Oxycodone HCl (Oxycodone) 5 mg PO Q2H PRN PRN Reason: Pain Sodium Chloride (Saline Flush) 10 ml FLUSH ASDIRECTED PRN PRN Reason: Keep Vein Open Sodium Chloride (Saline Flush) 2.5 ml FLUSH ASDIRECTED PRN PRN Reason: Keep Vein Open Sodium Chloride (Normal Saline) 10 ml IV ASDIRECTED PRN PRN Reason: IV Use Sterile Water (Sterile Water For Irrigation) 1,000 ml IRR ASDIRECTED PRN PRN Reason: delivery Jose Elias Monzon (Tucks) 1 pad TOP ASDIRECTED PRN PRN Reason: comfort care Discontinued Medications Fentanyl (Sublimaze) Confirm Administered Dose 100 mcg .ROUTE .STK-MED ONE Stop: 12/27/20 06:59 Ropivacaine (Naropin 0.2%) Confirm Administered Dose 100 mls @ as directed .ROUTE .STK-MED ONE Stop: 12/27/20 06:59 - Infant Interaction Disposition, : [place] at Bedside Interaction: Holding Infant Feeding: Breastfed Infant; Nursed Well Support Person: - Recovery Exam Fundal Tone: Firm Fundal Level: 1 Fingerbreadths Below Umbilicus Fundal Placement: Midline Lochia Amount: Scant Lochia Color: Rubra/Red Perineum Description: Intact, Minimal Bruising/Swelling Episiotomy/Laceration: None Bladder Status: Voiding - Exam General: Alert Lungs: Normal Respiratory Effort Cardiovascular: Regular Rate GI/Abdominal Exam: Soft, Tender (appropriate) Extremities: Normal Inspection, Normal Range of Motion, Non-Tender, No Pedal Edema Skin: Warm, Dry, Intact Neurological: No New Focal Deficit Psy/Mental Status: Normal Mood - Problem List Review Problem List Initiated/Reviewed/Updated: Yes - Assessment Assessment:: 35 year old at 39 weeks presented in spontaneous labor, delivered viable female infant apgars 9 & 9. No lacerations. Uterus firm. Mom and baby stable. - Plan Plan:: 1. Routine pp cares 2. Rh negative - will get dose of rhogam pending infant studies 3. Rubella non-immune - rubella vaccine post- Dispo: stable Anticipate discharge today pending maternal/ status. Reviewed discharge precautions including to notify clinic with temperature >100.4, intractable nausea/vomiting, severe pain not controlled by Tylenol/Ibuprofen or heavy vaginal bleeding. Follow up in 4 weeks for visit.
[2020-12-28 10:03] VITALS: PULSE 62
== END 2020-12-28 18:10 | disposition home or self-care (01) | DRG 560 ==
LOC: MW.OB 01:43 → MW.OBCHECK 01:43 → MW.OB 06:15 → MW.OBCHECK 06:15 → OBSVTOIN 10:17 → MW.OB 14:48
PROVIDERS: ADMIT Obstetrics & Gynecology; ATTEND Obstetrics & Gynecology
PROC: 10E0XZZ Delivery of Products of Conception, External Approach (ICD-10-PCS; principal; 2020-12-27)
PROC: 10907ZC Drainage of Amniotic Fluid, Therapeutic from Products of Conception, Via Natural or Artificial Opening (ICD-10-PCS; 2020-12-27)
PROC: 3E0R3BZ Introduction of Anesthetic Agent into Spinal Canal, Percutaneous Approach (ICD-10-PCS; 2020-12-27)
PROC: 00HU33Z Insertion of Infusion Device into Spinal Canal, Percutaneous Approach (ICD-10-PCS; 2020-12-27)
DX: O69.81X0 Labor and delivery complicated by cord around neck, without compression, not applicable or unspecified (principal); Z3A.39 39 weeks gestation of pregnancy; Z37.0 Single live birth; Z88.0 Allergy status to penicillin; Z20.822 Contact with and (suspected) exposure to COVID-19
CPT/HCPCS: 36415; 59025; 59409; 85014; 85018; 85027; 86592; 86850; 86900; 86901; A9270-GY; J2590; J2795; J3010; J7120; U0002